=== PATIENT | male | born 1985 | race Caucasian/White ===

== ENCOUNTER 2018-05-29 19:06 | Emergency (ER) | payer BC ==
[2018-05-29] MEDS ORDERED: Lorazepam 2 MG/ML VIAL ONE (19:09)
[2018-05-29] MEDS ORDERED: methylPREDNISolone Sod Succ/PF 125 MG/2 ML VIAL ONE (19:11)
[2018-05-29] MEDS ORDERED: EPINEPHrine 1 mg/ml MDV (1ml Charge) ONE ×2 (19:12→19:13)
[2018-05-29] MEDS ORDERED: diphenhydrAMINE 50 MG/ML VIAL ONE (19:12)
== END 2018-05-29 21:27 | disposition home or self-care (01) ==
LOC: BURERS 19:06
DX: T78.40XA Allergy, unspecified, initial encounter (principal); F41.0 Panic disorder [episodic paroxysmal anxiety]; I10 Essential (primary) hypertension
CPT/HCPCS: 96372; 96374; 96375; J0171; J1200; J2060; J2930